=== PATIENT | male | born 1935 | race Caucasian/White ===

== ENCOUNTER 2023-11-18 09:35 | Emergency (ER) | payer OTHER ==
[~2023-11-18] VITALS: Ht 180.3 cm; Wt 86.2 kg
[2023-11-18 09:42] VITALS: BP 152/83; PULSE 92; RESP 18; TEMP 97.7; O2SAT 96
[2023-11-18] MEDS: LIDOCAINE MPF 1% 10 MG/ML VIAL INJ ONE (10:53)
[2023-11-18 11:28] VITALS: O2SAT 100
[2023-11-18] MEDS ORDERED: LIDOCAINE MPF 1% 5 ML ONE (12:06)
[2023-11-18 14:48] VITALS: BP 152/83; PULSE 92; RESP 18; TEMP 97.7; O2SAT 100
== END 2023-11-18 14:47 ==
LOC: MED 09:35
DX: S91.114A Laceration without foreign body of right lesser toe(s) without damage to nail, initial encounter (principal); J45.909 Unspecified asthma, uncomplicated; G40.909 Epilepsy, unspecified, not intractable, without status epilepticus; F32.9 Major depressive disorder, single episode, unspecified; I42.9 Cardiomyopathy, unspecified; N18.9 Chronic kidney disease, unspecified; W18.30XA Fall on same level, unspecified, initial encounter; Y93.89 Activity, other specified; Y92.89 Other specified places as the place of occurrence of the external cause; Y99.8 Other external cause status
CPT/HCPCS: 12002; 73502; 73562; 73610; 73630; 90471; 90715; 99284; J2001; Q0092